=== PATIENT | female | born 1980 ===

== ENCOUNTER 2021-12-26 22:29 | Inpatient (IN) ==
[2021-12-26] MEDS ORDERED: ONDANSETRON 4 MG/2 ML VIAL IV STA (23:06)
[2021-12-26] MEDS ORDERED: HYDROmorphone 1 MG/1 ML SYRINGE IV STA (23:06)
[2021-12-26] MEDS ORDERED: SODIUM CHLORIDE 0.9% 1,000 ML IV STA (23:06)
[2021-12-26] MEDS ORDERED: VANCOMYCIN INJ 1,000 MG in SODIUM CHLORIDE 0.9% 250 ML IV STA (23:06)
[2021-12-27 00:19] LABS: Calcium 8.7 MG/DL (8.5-10.1); Osmolality,Calculated 273.7 MOS/KG (273-304); Potassium 3.5 MMOL/L (3.5-5.1)
[2021-12-27 00:22] LABS: Basophils % 0.2 % (0.0-0.8); Eosinophils # 0.1 10*3/uL (0.0-0.87); Eosinophils % 0.8 % (0.00-10.9); Hematocrit 37.7 VOL% (35.7-47.0); Hemoglobin 12.1 GM/DL (12.0-16.0); Immature Granulocytes % 0.3 %; Immature Granulocytes Absolute 0.03 #; Lymphocytes # 1.5 10*3/uL (1.4-4.0); Lymphocytes % 16.5 % (21.3-54.2); Mean Corpuscular HGB Conc 32.1 GM/DL (32-36); Mean Corpuscular Volume 91.1 FL (87-102); Mean Platelet Volume 9.6 FL (9.6-12.0); Monocytes # 0.9 10*3/uL (0.11-0.8); Monocytes % 9.1 % (1.7-12.7); Neutrophils % 73.1 % (38.7-73.9); Platelet Count 252 T/CUMM (130-400); Red Blood Count 4.14 MC/CUMM (3.8-5.5); Red Cell Distribution Width 13.6 % (9.3-17.3); White Blood Count 9.3 T/CUMM (4-12)
[2021-12-27] MEDS ORDERED: GLUCAGON 1 MG VIAL IM PRN (00:27)
[2021-12-27] MEDS ORDERED: DEXTROSE 10% 250 ML BAG IV PRN (00:58)
[2021-12-27 01:24] LABS: Albumin 3.2 G/DL (3.4-5.0); Bilirubin,Total 0.6 MG/DL (0.20-1.00); Calcium 8.6 MG/DL (8.5-10.1); Osmolality,Calculated 275.5 MOS/KG (273-304); Potassium 3.7 MMOL/L (3.5-5.1); Total Protein 6.8 G/DL (6.4-8.2)
[2021-12-27] MEDS: MORPHINE 2 MG/1 ML SYRINGE IV PRN ×2 (03:21→07:16)
[2021-12-27] MEDS ORDERED: VANCOMYCIN INJ 1,000 MG in SODIUM CHLORIDE 0.9% 250 ML IV SCH (09:00)
[2021-12-27] MEDS ORDERED: MEPERIDINE 50 MG/1 ML VIAL IV PRN (09:00)
[2021-12-27] MEDS: MULTIVITAMIN (CENTRUM) TABLET PO SCH (09:03)
[2021-12-27] MEDS: PANTOPRAZOLE 40 MG TABLET PO SCH (09:03)
[2021-12-27] MEDS: PIPERACILLIN/TAZOBACTAM 3,375 MG in SODIUM CHLORIDE 0.9% 100 ML IV SCH ×2 (09:05→16:01)
[2021-12-27] MEDS ORDERED: diphenhydrAMINE 50 MG/1 ML VIAL IV PRN (09:22)
[2021-12-27] MEDS ORDERED: PROMETHAZINE INJ 25 MG in SODIUM CHLORIDE 0.9% 50 ML IV PRN (09:22)
[2021-12-27] MEDS ORDERED: ONDANSETRON 4 MG/2 ML VIAL IV PRN ×2 (09:22→19:58)
[2021-12-27] MEDS ORDERED: MEPERIDINE 25 MG/1 ML VIAL IV PRN (09:22)
[2021-12-27] MEDS ORDERED: fentaNYL 100 MCG/2 ML VIAL ONE (10:12)
[2021-12-27] MEDS ORDERED: propofoL 200 MG/20 ML VIAL IV ONE (10:30)
[2021-12-27] MEDS ORDERED: ONDANSETRON 4 MG/2 ML VIAL ONE (10:30)
[2021-12-27] MEDS ORDERED: SUCCINYLCHOLINE 200 MG/10 ML VIAL ONE (10:30)
[2021-12-27] MEDS ORDERED: DESFLURANE 1 UNIT/15 MINUTE INH ONE (10:30)
[2021-12-27] MEDS ORDERED: LIDOCAINE 2% 5 ML VIAL ONE (10:30)
[2021-12-27] MEDS ORDERED: DEXAMETHASONE 4 MG/1 ML VIAL ONE (10:30)
[2021-12-27] MEDS ORDERED: KETOROLAC 30 MG/1 ML VIAL ONE (10:36)
[2021-12-27] MEDS: HYDROmorphone 1 MG/1 ML SYRINGE IV PRN ×3 (11:00→21:25)
[2021-12-27] MEDS ORDERED: PROMETHAZINE 25 MG/1 ML VIAL ONE (11:01)
[2021-12-27] MEDS: VANCOMYCIN INJ 1,250 MG in SODIUM CHLORIDE 0.9% 250 ML IV SCH (13:15)
[2021-12-27] MEDS: ACETAMINOPHEN 325 MG TABLET PO PRN (20:06)
[2021-12-28] MEDS: VANCOMYCIN INJ 1,250 MG in SODIUM CHLORIDE 0.9% 250 ML IV SCH ×2 (00:05→12:56)
[2021-12-28] MEDS: PIPERACILLIN/TAZOBACTAM 3,375 MG in SODIUM CHLORIDE 0.9% 100 ML IV SCH ×3 (01:13→17:26)
[2021-12-28] MEDS: HYDROmorphone 1 MG/1 ML SYRINGE IV PRN ×2 (02:51→08:55)
[2021-12-28 05:20] LABS: Basophils % 0.1 % (0.0-0.8); Hematocrit 33.7 VOL% (35.7-47.0); Hemoglobin 10.6 GM/DL (12.0-16.0); Immature Granulocytes % 0.7 %; Immature Granulocytes Absolute 0.07 #; Mean Corpuscular HGB Conc 31.5 GM/DL (32-36); Mean Corpuscular Volume 93.9 FL (87-102); Mean Platelet Volume 9.5 FL (9.6-12.0); Monocytes # 0.8 10*3/uL (0.11-0.8); Monocytes % 7.6 % (1.7-12.7); Neutrophils % 82.6 % (38.7-73.9); Platelet Count 303 T/CUMM (130-400); Red Blood Count 3.59 MC/CUMM (3.8-5.5); Red Cell Distribution Width 13.2 % (9.3-17.3); White Blood Count 10.8 T/CUMM (4-12)
[2021-12-28 05:38] LABS: Calcium 8.2 MG/DL (8.5-10.1); Osmolality,Calculated 283.1 MOS/KG (273-304); Potassium 3.7 MMOL/L (3.5-5.1)
[2021-12-28] MEDS: PANTOPRAZOLE 40 MG TABLET PO SCH (08:54)
[2021-12-28] MEDS: MULTIVITAMIN (CENTRUM) TABLET PO SCH (08:54)
[2021-12-29] MEDS: VANCOMYCIN INJ 1,250 MG in SODIUM CHLORIDE 0.9% 250 ML IV SCH ×2 (00:30→14:16)
[2021-12-29] MEDS ORDERED: VANCOMYCIN INJ 1,500 MG in SODIUM CHLORIDE 0.9% 500 ML IV SCH (01:00)
[2021-12-29] MEDS: PIPERACILLIN/TAZOBACTAM 3,375 MG in SODIUM CHLORIDE 0.9% 100 ML IV SCH ×2 (01:30→09:02)
[2021-12-29] MEDS: PANTOPRAZOLE 40 MG TABLET PO SCH (09:01)
[2021-12-29] MEDS: MULTIVITAMIN (CENTRUM) TABLET PO SCH (09:02)
[2021-12-29] MEDS: ACETAMINOPHEN 325 MG TABLET PO PRN ×2 (11:24→22:41)
[2021-12-29] MEDS ORDERED: POLYETHYLENE GLYCOL POWDER 17 GM PACK PO PRN (14:17)
[2021-12-29] MEDS ORDERED: MAGNESIUM HYDROXIDE SUSP 30 ML UDCUP PO PRN (16:33)
[2021-12-29] MEDS ORDERED: BISACODYL 10 MG SUPP RECTAL PRN (19:06)
[2021-12-29] MEDS ORDERED: SODIUM PHOSPHATE ENEMA 133 ML BOTTLE RECTAL PRN (20:40)
[2021-12-29] MEDS ORDERED: MAGNESIUM CITRATE 300 ML BOTTLE PO PRN (20:40)
[2021-12-29] MEDS: CEFUROXIME 500 MG TABLET PO SCH (21:36)
[2021-12-30] MEDS: ACETAMINOPHEN 325 MG TABLET PO PRN (06:44)
[2021-12-30] MEDS: CEFUROXIME 500 MG TABLET PO SCH (08:21)
[2021-12-30] MEDS: PANTOPRAZOLE 40 MG TABLET PO SCH ×2 (08:21→08:25)
[2021-12-30] MEDS: MULTIVITAMIN (CENTRUM) TABLET PO SCH (08:21)
[2021-12-30 08:31] VITALS: BP 118/72
== END 2021-12-30 10:28 | disposition home or self-care (01) | DRG 571 ==
LOC: N.ED 22:29 → N.EDINP 22:29 → SUATTDRO 12-27 00:27 → N.EDINP 12-27 02:36 → N.5E 12-27 03:14 → SUATTDRO 12-27 08:47
PROVIDERS: ADMIT Internal Medicine; ATTEND Internal Medicine